=== PATIENT | female | born 1990 | race African-American/Black ===

== ENCOUNTER 2018-05-29 13:07 | Inpatient (IN) | payer OTHER ==
[~2018-05-29] VITALS: Ht 162.6 cm; Wt 79.2 kg
[~2018-05-29 13:07] MED LIST: LEVOTAB OR
[2018-05-29 13:46] LABS: Basophils # (auto) 0.1 uL; Basophils % (auto) 0.8 % (0.0-2.0); Eosinophils # (auto) 0.1 uL; Eosinophils % (auto) 0.6 % (0.0-7.0); Hematocrit 38.6 % (36.0-46.0); Hemoglobin 13.5 g/dL (12.2-16.2); Lymphocytes # (auto) 2.2 uL; Lymphocytes % (auto) 23.2 % (10.0-50.0); Mean Corpuscular Hemoglobin 31.5 pg (28.0-32.0); Mean Corpuscular Volume 90.1 fL (80.0-100.0); Monocytes # (auto) 0.4 uL; Monocytes % (auto) 4.4 % (0.0-12.0); Neutrophils # (auto) 6.6 uL; Nucleated Red Blood Cells % 0.1 %; Platelet Count (auto) 229 10^3/uL (140-450); Red Blood Cells 4.28 10^6/uL (4.0-5.20); White Blood Cell 9.3 10^3/uL (4.4-10.8)
[2018-05-29 14:08] LABS: Albumin 3.8 g/dL (3.4-5.0); Calcium 8.7 mg/dL (8.5-10.1); Potassium 3.8 mmol/L (3.5-5.1)
[2018-05-29 14:10] LABS: BUN/Creatinine Ratio 10.1
[2018-05-29] MEDS ORDERED: LORazepam 2MG/ML-1ML VIAL ONE (14:10)
[2018-05-29 14:13] LABS: Bilirubin, Total 0.3 mg/dL (0.2-1.0); Total Protein 7.9 g/dL (6.4-8.2)
[2018-05-29] MEDS ORDERED: LORazepam 2MG/ML-1ML VIAL IV ONE (14:30)
[2018-05-29] MEDS ORDERED: HYDROcodone-ACET 10/325MG TAB PO ONE (16:45)
[2018-05-29] MEDS ORDERED: PROM25TA5 PO (17:23)
[2018-05-29] MEDS ORDERED: PRA1C PO ×2 (17:23)
[2018-05-29] MEDS ORDERED: SERT-274 PO (17:23)
[2018-05-29] MEDS ORDERED: HYDR-531 PO (17:24)
[2018-05-29] MEDS ORDERED: CETI10TA80 PO (17:27)
[2018-05-29] MEDS ORDERED: PREG100C PO ×2 (17:27)
[2018-05-29] MEDS ORDERED: MAGN400T18 PO (17:36)
[2018-05-29] MEDS ORDERED: MULTCAP45 PO (17:36)
[2018-05-29] MEDS ORDERED: OMEP20TA PO (17:36)
[2018-05-29] MEDS ORDERED: ZOLP10TA6 PO (17:36)
[2018-05-29] MEDS ORDERED: TOPI50TA53 PO (17:36)
[2018-05-29] MEDS ORDERED: DIPH25CA6 PO (17:36)
[2018-05-29] MEDS ORDERED: RIBO100C PO (17:36)
[2018-05-29] MEDS ORDERED: ONDA-101 SL (17:36)
[2018-05-29] MEDS ORDERED: CYCL1TAB18 PO (17:36)
[2018-05-29] MEDS ORDERED: RANI150C11 PO (17:36)
[2018-05-29] MEDS ORDERED: PROMETHAZINE HCL 6.25 MG/5 ML ORAL SYRUP PO ONE (18:00)
[2018-05-29 19:13] LABS: Urine Amorphous Crystal MOD /hpf (None Seen); Urine Bacteria NONE SEEN /hpf (None Seen); Urine Blood Negative /uL (Negative); Urine Specific Gravity 1.017 (1.001-1.035); Urine WBC 1 /hpf (0 - 5)
[2018-05-29] MEDS ORDERED: LORazepam 2MG/ML-1ML VIAL IV PRN (22:00)
[2018-05-29] MEDS ORDERED: MORPHINE SULFATE 4 MG/ML SYR/VIAL IV PRN (22:30)
[2018-05-29] MEDS ORDERED: diphenhdrAMINE HCL 25 MG CAP PO PRN (22:30)
[2018-05-29] MEDS ORDERED: MORPHINE SULFATE 4 MG/ML SYR/VIAL IV ONE (22:30)
[2018-05-29] MEDS ORDERED: ZOLPIDEM TARTRATE 5 MG TAB PO PRN (22:30)
[2018-05-29] MEDS ORDERED: ACETAMINOPHEN 500 MG TAB PO PRN (22:30)
[2018-05-30] VITALS (8 sets, daily range): BP systolic 92–112; BP diastolic 58–73
[2018-05-30] MEDS ORDERED: MORPHINE SULFATE 4 MG/ML SYR/VIAL IV PRN (03:00)
[2018-05-30] MEDS: MORPHINE SULFATE 4 MG/ML SYR/VIAL IV PRN ×4 (06:21→20:13)
[2018-05-30 06:26] LABS: Basophils # (auto) 0.1 uL; Eosinophils # (auto) 0.2 uL; Eosinophils % (auto) 1.7 % (0.0-7.0); Hematocrit 38.5 % (36.0-46.0); Hemoglobin 13.4 g/dL (12.2-16.2); Lymphocytes # (auto) 2.9 uL; Lymphocytes % (auto) 29.5 % (10.0-50.0); Mean Corpuscular Hemoglobin 31.4 pg (28.0-32.0); Mean Corpuscular Hgb Conc. 34.9 g/dL (32.0-36.0); Monocytes # (auto) 0.5 uL; Monocytes % (auto) 4.8 % (0.0-12.0); Neutrophils # (auto) 6.3 uL; Platelet Count (auto) 223 10^3/uL (140-450); Red Blood Cells 4.28 10^6/uL (4.0-5.20); Red Cell Distribution Width 13.2 % (11.8-14.3); White Blood Cell 9.9 10^3/uL (4.4-10.8)
[2018-05-30 06:45] LABS: Calcium 8.6 mg/dL (8.5-10.1); Potassium 3.7 mmol/L (3.5-5.1)
[2018-05-30 06:47] LABS: BUN/Creatinine Ratio 10.1
[2018-05-30] MEDS ORDERED: LORazepam 2MG/ML-1ML VIAL IV PRN (09:00)
[2018-05-30] MEDS: PRAZOSIN HCL 1 MG CAP PO SCH ×2 (10:00→16:00)
[2018-05-30] MEDS: SERTRALINE HCL 50 MG TAB PO SCH (10:35)
[2018-05-30] MEDS: TOPIRAMATE 25 MG TAB PO SCH ×2 (10:36→20:13)
[2018-05-30] MEDS: LEVETIRACETAM 500 MG TAB PO SCH ×2 (10:36→20:12)
[2018-05-30] MEDS: ONDANSETRON HCL 4 MG/2 ML VIAL IV PRN ×3 (10:44→20:14)
[2018-05-30] MEDS ORDERED: PROMETHAZINE HCL 6.25 MG/5 ML ORAL SYRUP PO PRN (16:00)
[2018-05-30] MEDS ORDERED: PRAZOSIN HCL 1 MG CAP PO SCH (22:00)
[2018-05-30] MEDS ORDERED: PREGABALIN 25 MG CAP PO SCH (22:00)
[2018-05-31 06:23] VITALS: BP 96/64
[2018-05-31 08:00] VITALS: BP 93/59
[2018-05-31 08:53] VITALS: BP 93/59
[2018-05-31] MEDS: PRAZOSIN HCL 1 MG CAP PO SCH (10:00)
[2018-05-31] MEDS: LEVETIRACETAM 500 MG TAB PO SCH (10:08)
[2018-05-31] MEDS: MORPHINE SULFATE 4 MG/ML SYR/VIAL IV PRN ×2 (10:08→14:41)
[2018-05-31] MEDS: SERTRALINE HCL 50 MG TAB PO SCH (10:09)
[2018-05-31] MEDS: TOPIRAMATE 25 MG TAB PO SCH (10:20)
[2018-05-31 13:21] VITALS: BP 101/69
[2018-05-31 14:42] VITALS: BP 101/69
== END 2018-05-31 15:00 | disposition home or self-care (01) | DRG 101 ==
LOC: EDBD 13:07 → ER 13:09 → OVERFLOW 13:10 → CENTRAL 05-30 00:06
PROVIDERS: ADMIT Nurse Practitioner Family; ATTEND Internal Medicine Pulmonary Disease
DX: R56.9 Unspecified convulsions (principal); R47.01 Aphasia; I69.354 Hemiplegia and hemiparesis following cerebral infarction affecting left non-dominant side; F17.210 Nicotine dependence, cigarettes, uncomplicated; F41.9 Anxiety disorder, unspecified; S13.4XXA Sprain of ligaments of cervical spine, initial encounter; G43.409 Hemiplegic migraine, not intractable, without status migrainosus; W19.XXXA Unspecified fall, initial encounter; F15.90 Other stimulant use, unspecified, uncomplicated; E66.01 Morbid (severe) obesity due to excess calories; R53.1 Weakness; Z68.30 Body mass index [BMI] 30.0-30.9, adult; Z88.8 Allergy status to other drugs, medicaments and biological substances; Z88.1 Allergy status to other antibiotic agents; Z91.041 Radiographic dye allergy status; Z91.040 Latex allergy status; Z88.5 Allergy status to narcotic agent; Z88.0 Allergy status to penicillin; Z91.013 Allergy to seafood; Y93.89 Activity, other specified; Y92.89 Other specified places as the place of occurrence of the external cause; Y99.8 Other external cause status; Z80.8 Family history of malignant neoplasm of other organs or systems; Z83.3 Family history of diabetes mellitus; Z90.710 Acquired absence of both cervix and uterus; Z90.49 Acquired absence of other specified parts of digestive tract
CPT/HCPCS: 36415; 70450; 70480; 70551; 72125; 72131; 80048; 80053; 81001; 85025; 95819; 96374; 96375; J2405